=== PATIENT | female | born 1970 | race Caucasian/White ===

== ENCOUNTER 2016-09-10 19:49 | Emergency (ER) | payer MEDICARE, MEDICAID ==
[~2016-09-10] VITALS: Ht 160 cm; Wt 74.0 kg
[2016-09-10] MEDS ORDERED: LAMO200T7 PO ×2 (20:02)
[2016-09-10] MEDS ORDERED: LACO100 PO (20:02)
[2016-09-10] MEDS ORDERED: CARB200T6 PO (20:02)
[2016-09-10] MEDS ORDERED: LEVE500T53 PO (20:02)
[2016-09-10] MEDS ORDERED: LORazepam 1 MG TABLET PO ONE (20:15)
[2016-09-10] MEDS ORDERED: PERTUSS(ACELL),DIPH,TET VAC/PF 0.5 ML VIAL IM ONE (20:15)
[2016-09-10] MEDS ORDERED: SILVER SULFADIAZINE 1% 20 GM CREAM TP ONE (20:15)
[2016-09-10] MEDS ORDERED: MORPHINE SULFATE 4 MG/ML SYRINGE IM ONE (20:15)
[2016-09-10 21:27] VITALS: BP 139/87
== END 2016-09-10 21:28 | disposition home or self-care (01) ==
LOC: EMS 19:52
DX: T21.22XA Burn of second degree of abdominal wall, initial encounter (principal); T23.262A Burn of second degree of back of left hand, initial encounter; X12.XXXA Contact with other hot fluids, initial encounter; Y93.89 Activity, other specified; Y92.89 Other specified places as the place of occurrence of the external cause; Y99.8 Other external cause status
CPT/HCPCS: 16020; 90471; 90715; 96372; 99284; J2270